=== PATIENT | female | born 1955 | race Caucasian/White ===

== ENCOUNTER 2024-07-12 16:27 | Emergency (ER) | payer OTHER, SELFPAY ==
[2024-07-12 16:34] VITALS: BP 119/77; PULSE 88; RESP 20; TEMP 36.8; O2SAT 99; BMI 22.0
--- NOTE | 2024-07-12 16:47 | CRLHL7_ITS ---
For Patients: As a result of the Cures Act, medical imaging exams and procedure reports are released immediately into your electronic medical record. You may view this report before your referring provider. If you have questions, please contact your health care provider. Indication: Trauma. Technique: Left knee, 3 views. Comparison: None. Findings/Impression: Bones: Alignment is normal. No displaced fractures or bone lesions. Joint spaces: Moderate tricompartmental degenerative changes. Soft tissues: Unremarkable. Dictated by Shabbir Jorge MD @ 07/12/2024 5:42:28 PM (Electronically Signed)
--- NOTE | 2024-07-12 16:47 | CRLHL7_ITS ---
For Patients: As a result of the Cures Act, medical imaging exams and procedure reports are released immediately into your electronic medical record. You may view this report before your referring provider. If you have questions, please contact your health care provider. Indication: Fall, hit right side of eye Technique: Volumetric multidetector CT images of the facial bones were obtained without the administration of IV contrast. Comparison: None available. Findings: The partially visualized brain is normal in attenuation without evidence of midline shift or fluid collection. The paranasal sinuses are clear without evidence of air-fluid level. Mild right periorbital, preseptal soft tissue swelling without evidence of postseptal hematoma. No evidence of displaced fracture. The zygomatic arches are grossly intact. The bilateral maxillae are intact. The pterygoid plates are grossly intact. The nasal bones and anterior nasal spine are intact without displaced fracture. Impression: Mild right periorbital preseptal soft tissue swelling without evidence of underlying osseous orbital injury. Please note that all CT scans at this facility use dose modulation, iterative reconstruction, and/or weight-based dosing when appropriate to reduce radiation dose to as low as reasonably achievable. Dictated by Alcon Arriaga MD @ 07/12/2024 5:55:30 PM (Electronically Signed)
--- NOTE | 2024-07-12 16:59 | CRLHL7_ITS ---
For Patients: As a result of the Century Cures Act, medical imaging exams and procedure reports are released immediately into your electronic medical record. You may view this report before your referring provider. If you have questions, please contact your health care provider. Indication: Fall, hit right-side of head neck pain Technique: Volumetric multidetector CT images of the cervical spine were obtained without the administration of IV contrast. Comparison: None available. Findings: The cervical vertebral body heights are grossly maintained with endplate Schmorl`s defects and subchondral cystic changes. There is reversal of the normal cervical lordosis without evidence of significant spondylolisthesis. There is no displaced fracture or dislocation. There is moderate to severe degenerative disc disease with disc height loss and marginal osteophyte formation. There is moderate to severe facet arthrosis. The paraspinous soft tissues are grossly within normal limits. Impression: Moderate to severe degenerative changes of the cervical spine without acute osseous abnormality. Please note that all CT scans at this facility use dose modulation, iterative reconstruction, and/or weight-based dosing when appropriate to reduce radiation dose to as low as reasonably achievable. Dictated by Alcon Arriaga MD @ 07/12/2024 5:51:12 PM (Electronically Signed)
--- NOTE | 2024-07-12 16:59 | CRLHL7_ITS ---
For Patients: As a result of the Century Cures Act, medical imaging exams and procedure reports are released immediately into your electronic medical record. You may view this report before your referring provider. If you have questions, please contact your health care provider. Indication: Fall, hit head and neck pain Technique: Volumetric multidetector CT images of the head were obtained without the administration of low osmolar intravenous contrast. Comparison: None available Findings: There is no intra-axial or extra-axial fluid collection. There is no mass effect or midline shift. The ventricles and sulci are normal in size and position for age. Minimal chronic small vessel disease change within the subcortical and periventricular white matter. Otherwise, the brain parenchyma is preserved in attenuation and luo-white differentiation. The orbits and their contents are grossly within normal limits. The bony calvarium is grossly intact. The paranasal sinuses are clear. The mastoid air cells are well aerated. Impression: Mild chronic small vessel disease changes of the brain without acute intracranial abnormality. Please note that all CT scans at this facility use dose modulation, iterative reconstruction, and/or weight-based dosing when appropriate to reduce radiation dose to as low as reasonably achievable. Dictated by Alcon Arriaga MD @ 07/12/2024 5:48:59 PM (Electronically Signed)
[2024-07-12 17:26] VITALS: BP 128/85; PULSE 71; RESP 16; O2SAT 100
--- NOTE | 2024-07-12 18:37 | ED_ITS ---
HPI - General Adult General Date Seen: 07/12/24 Chief complaint: Fall/Minor Trauma Stated complaint: Eye injury at work Time Seen by Provider: 07/12/24 16:43 Source: patient Mode of arrival: ambulatory Limitations: no limitations History of Present Illness HPI narrative: Patient is a 69-year-old female presenting to the emergency department for right eye pain and bruising. She states yesterday at 02:00 she was at work when she tripped and fell hitting her right eye on a seat back. She works as a dressing room attendant. She also hurt her left knee at this time. Is also complaining about some mild neck stiffness. Denies lightheadedness or dizziness. Denies any blurry vision. She states most her pain right now is to the right eye. Was told by work she needs to come in for evaluation. Denies headache, weakness, numbness, chest pain, shortness of breath. Related Data Allergies Allergy/AdvReac Type Severity Reaction Status Date / Time No Known Drug Allergies Allergy Verified 07/12/24 16:33 Review of Systems Status of ROS: Reports: 10 or more systems reviewed and unremarkable except as noted in History and below [facility] Social History Smoking Status: Never smoker How often do you have a drink containing alcohol: 2-3 times a week How many standard drinks containing alcohol do you have on a typical day: 3 or 4 How often do you have six or more drinks on one occasion: Weekly AUDIT-C Alcohol total score: 7 Non-prescribed substance use: denies use service: No Exam Narrative: Exam Narrative: Const: Well-nourished, Well-developed, in mild distress Eyes: PERRL, no conjunctival injection, and symmetrical lids. Fall range of movement of eyes. Bruising to right upper eyelid HENT: Atraumatic external nose and ears. Moist mucous membranes. Neck: Symmetric, trachea midline, No thyromegaly. MSK:Extremities w/o deformity, Normal Active ROM. No midline neck per minute. Mild tenderness to the bruised area just distal to left patella. Skin: Warm, Dry. No rashes or lesions. Neuro: Normal Muscle tone, No focal neurological deficits. Psych: Awake, Alert, & Oriented x3. Appropriate mood and affect. Const: Vital Signs, click to edit/add: Vital Signs - 24 hr 07/12/24 16:34 07/12/24 17:26 Temperature 98.2 F Pulse Rate [Pulse Oximeter] 88 71 Respiratory Rate 20 16 Blood Pressure [Ri ght Upper Arm] 119/77 128/85 Pulse Oximetry 99 100 Oxygen Delivery Me thod Room Air Room Air Course Vital Signs Vital signs: Initial Vital Signs Temperature 98.2 F 07/12/24 16:34 Temperature Source Temporal Artery Scan 07/12/24 16:34 Pulse Rate 88 07/12/24 16:34 Respiratory Rate 20 07/12/24 16:34 Blood Pressure 119/77 07/12/24 16:34 Blood Pressure Mean 91 07/12/24 16:34 Blood Pressure Position Sitting 07/12/24 16:34 Pulse Oximetry 99 07/12/24 16:34 Oxygen Delivery Method Room Air 07/12/24 16:34 Vital Signs Temperature 98.2 F 07/12/24 16:34 Pulse Rate 88 07/12/24 16:34 Respiratory Rate 20 07/12/24 16:34 Blood Pressure 119/77 07/12/24 16:34 Pulse Oximetry 99 07/12/24 16:34 Oxygen Delivery Method Room Air 07/12/24 16:34 Temperature 98.2 F 07/12/24 16:34 Pulse Rate 71 07/12/24 17:26 Respiratory Rate 16 07/12/24 17:26 Blood Pressure 128/85 07/12/24 17:26 Pulse Oximetry 100 07/12/24 17:26 Oxygen Delivery Method Room Air 07/12/24 17:26 Medical Decision Making MDM Narrative Medical decision making narrative: Patient is a 69-year-old female presenting to the emergency department after fall at work yesterday morning. She does have bruising to her right eye but no signs of orbital blowout fracture as she has full range of movement of her eyes. No other injuries noted other than some mild left knee pain and very mild left shoulder pain. She is ambulating appropriately. Does complain about some neck stiffness. Will do a CT scan of her head, orbits, cervical spine and x-ray of the left knee. Is not having any visual changes and is issues with and the eyeball are unlikely. She is agreeable to this plan. Imaging reviewed myself the radiologist showed no acute concerning abnormalities. She feels well at this time will be discharged. She is agreeable to this plan. Imaging Data CT scan - head: Attestation: I have reviewed the pertinent imaging results. Radiologist's impression: Mild chronic small vessel disease changes of the brain without acute intracranial abnormality. Please note that all CT scans at this facility use dose modulation, iterative reconstruction, and/or weight-based dosing when appropriate to reduce radiation dose to as low as reasonably achievable. Dictated by Alcon Arriaga MD @ 07/12/2024 5:48:[address] scan orbit: Attestation: I have reviewed the pertinent imaging results. Radiologist's impression: Mild right periorbital preseptal soft tissue swelling without evidence of underlying osseous orbital injury. Please note that all CT scans at this facility use dose modulation, iterative reconstruction, and/or weight-based dosing when appropriate to reduce radiation dose to as low as reasonably achievable. Dictated by Alcon Arriaga MD @ 07/12/2024 5:55:[address] cervical spine: Attestation: I have reviewed the pertinent imaging results. Radiologist's impression: Moderate to severe degenerative changes of the cervical spine without acute osseous abnormality. Please note that all CT scans at this facility use dose modulation, iterative reconstruction, and/or weight-based dosing when appropriate to reduce radiation dose to as low as reasonably achievable. Dictated by Alcon Arriaga MD @ 07/12/2024 5:51:12 PM X-ray left knee: Attestation: I have reviewed the pertinent imaging results. Radiologist's impression: Bones: Alignment is normal. No displaced fractures or bone lesions. Joint spaces: Moderate tricompartmental degenerative changes. Soft tissues: Unremarkable. Dictated by Shabbir Jorge MD @ 07/12/2024 5:42:28 PM Discharge Plan Discharge Clinical Impression: Ecchymosis of eye Patient Disposition: Home, Self-Care Condition: Stable Instructions: Black Eye (ED) Additional Instructions: Take Tylenol and ibuprofen for pain. Return for new or worsening symptoms. Follow Up/Referrals: Provider,Not a Local [Primary Care Provider] - Stand Alone Forms: [facility] Inst[facility]
== END 2024-07-12 18:54 | disposition home or self-care (01) ==
PROVIDERS: Emergency Provider Student in an Organized Health Care Education/Training Program
DX: S05.11XA Contusion of eyeball and orbital tissues, right eye, initial encounter (principal); M25.562 Pain in left knee; M43.6 Torticollis
CPT/HCPCS: 70450; 70480; 72125; 73562; 99283; 99285